=== PATIENT | female | born 1995 | race Two or more races ===

== ENCOUNTER 2021-02-24 01:23 | Emergency (ER) | payer MEDICAID, OTHER ==
[~2021-02-24] VITALS: Ht 157.5 cm; Wt 46.3 kg
[2021-02-24 02:01] VITALS: BP 103/50
[2021-02-24] MEDS ORDERED: KETOROLAC TROMETH 60MG/2ML VIAL IM ONE (02:45)
[2021-02-24] MEDS ORDERED: cefTRIAXone SOD 1,000 MG VL IM ONE (02:45)
== END 2021-02-24 03:28 | disposition home or self-care (01) ==
LOC: ER 01:27
DX: L02.31 Cutaneous abscess of buttock (principal); M54.5 Low back pain
CPT/HCPCS: 96372; 99284; J0696; J1885